=== PATIENT | male | born 1965 | race Caucasian/White ===

== ENCOUNTER 2019-04-11 15:20 | Emergency (ER) | payer MEDICAID ==
[~2019-04-11] VITALS: Ht 170.2 cm; Wt 99.5 kg
[2019-04-11] MEDS ORDERED: CIPR2.5D18 RIGHTEYE (17:55)
[2019-04-11 18:12] VITALS: BP 127/76
== END 2019-04-11 18:12 | disposition home or self-care (01) ==
LOC: ER 15:21 → EDBD 15:21 → ER 18:12
DX: T15.01XA Foreign body in cornea, right eye, initial encounter (principal); H16.001 Unspecified corneal ulcer, right eye; Z88.0 Allergy status to penicillin; Z79.2 Long term (current) use of antibiotics; X58.XXXA Exposure to other specified factors, initial encounter; Y93.89 Activity, other specified; Y92.098 Other place in other non-institutional residence as the place of occurrence of the external cause; Y99.8 Other external cause status
CPT/HCPCS: 65220; 99283; 99284